=== PATIENT | male | born 1980 | race Caucasian/White ===

== ENCOUNTER 2024-10-29 12:13 | Emergency (ER) | payer OTHER, SELFPAY ==
[2024-10-29 12:24] VITALS: BP 149/84; PULSE 68; RESP 18; TEMP 36.5; O2SAT 99
--- NOTE | 2024-10-29 12:27 | ED_ITS ---
HPI - URI/Sore Throat General Chief Complaint: Back Pain/Injury Stated Complaint: lower back pain Time Seen by Provider: 10/29/24 12:28 Source: patient, RN notes reviewed and old records reviewed Mode of arrival: ambulatory Limitations: no limitations History of Present Illness HPI Narrative: patient presents with complaints of low back pain, worst on the left side. 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 He reports that he did not think much of this, but then this morning was bent over petting the dog, felt a sharp pain in the left side of his back, same spot as original pain yesterday. He reports that now pain is much worse. He reports pain is worst when he twists to the torso or bends forward. He denies any numbness or tingling. He denies any loss of bowel or bladder control. He is able to ambulate with steady gait. He has not taken anything for his symptoms. Related Data Allergies Allergy/AdvReac Type Severity Reaction Status Date / Time No Known Allergies Allergy Verified 10/29/24 12:32 Review of Systems Review of Systems: All systems reviewed & are unremarkable except as noted in HPI and below Constitutional: Constitutional: Reports no additional constitutional complaints ENT: Reports system reviewed and no additional complaints, except as documented Cardiovascular: Cardiovascular: Reports no additional cardiovascular complaints Respiratory: Respiratory: Reports no additional respiratory complaints Gastrointestinal: Gastrointestinal: Reports no additional gastrointestinal complaints Musculoskeletal: Musculoskeletal: Reports no additional musculoskeletal complaints, Reports as per HPI and Reports back pain PMFSH Comments At the time of my signature, I reviewed and agree with the nursing past medical, surgical, social, and family history. There is no relevant family history pertinent to the patient complaint. Exam Const: General: cooperative, no acute distress, alert and awake Orientation/consciousness: oriented to person, oriented to place and oriented to time HENMT: Head: normal to inspection Resp: Effort & Inspection: normal respiratory effort and able to speak in complete sentences Auscultation: clear to auscultation bilaterally, no crack les, no rales, no rhonchi and no wheezes Cardio: Palpation: normal PMI Rate: regular rate Rhythm: regular rhythm Heart sounds: S1 normal heart sound present and S2 normal heart sound present Back/Spine/Pelvis: Back: back tenderness ( Left lumbar) Thoracic/Lumbar Spine: pain with thoraco-lumbar ROM, thoraco-lumbar spasm on the left, No thoracic spinal tenderness and No lumbar spinal tenderness Neuro: General: oriented to person, oriented to place and oriented to time Cranial nerves: Yes CN's II-XII intact bilaterally Speech: normal speech Psych: Appearance: grossly normal Thought process: Normal thought process present Insight: Good insight present (Psych) Judgement: Good judgement present (Psych) Course Course Level of Care: Express Care Visit Vital Signs Vital signs: Vital Signs Temperature 97.7 F 10/29/24 12:24 Pulse Rate 68 10/29/24 12:24 Respiratory Rate 18 10/29/24 12:24 Blood Pressure 149/84 H 10/29/24 12:24 Pulse Oximetry 99 10/29/24 12:24 Oxygen Delivery Room Air 10/29/24 12:24 Temperature 97.7 F 10/29/24 12:24 Pulse Rate 68 10/29/24 12:24 Respiratory Rate 18 10/29/24 12:24 Blood Pressure 149/84 H 10/29/24 12:24 Pulse Oximetry 99 10/29/24 12:24 Oxygen Delivery Room Air 10/29/24 12:24 Reviewed MDM - URI/Sore Throat MDM Narrative Medical decision making narrative: patient with left low back pain, palpable muscle spasm. No spinal tenderness. No numbness or tingling. Treat with steroids, muscle relaxant. Discharge instructions reviewed with patient, as well as provided in writing per nursing staff. The instructions also include specific and strict return/GO TO THE ER as well as f/u information. All questions have been answered, and the patient deny any further questions with discharge and discharge plan. Some parts of this dictation were generated by voice recognition software and may contain typographical and/or grammatical inaccuracies. Differential Diagnosis Differential diagnosis: Likely other (Muscle spasm, radiculopathy) Medical Records Attestation: I reviewed the patient's medical records. Discharge Plan Discharge Clinical Impression: Lumbago Qualifiers: Chronicity: acute Back pain laterality: left Sciatica presence: without sciatica Qualified Code(s): M54.50 - Low back pain, unspecified Patient Disposition: Home, Self-Care Condition: Stable Instructions: Antibiotic Form, Acute Low Back Pain (ED) Additional Instructions: take medications as prescribed. Follow with primary care provider. Emergency department for any new or worsening symptoms. Blood pressure elevated today at 149/84. Normal blood pressure is 120/80. Please discuss this with your primary care provider Patient Language: [place] Prescriptions: New prednisone 50 mg tablet 50 mg PO DAILY Qty: 5 0RF cyclobenzaprine 10 mg tablet 10 mg PO TID PRN (Reason: muscle spasm) Qty: 20 0RF Follow-up/Referrals: ENFIELD, [Primary Care Provider] - Time of Disposition: 12:35
== END 2024-10-29 12:48 | disposition home or self-care (01) ==
PROVIDERS: Emergency Provider Nurse Practitioner Family
DX: M54.50 Low back pain, unspecified (principal)
CPT/HCPCS: 99213; G0463